=== PATIENT | female | born 1935 | race Caucasian/White ===

== ENCOUNTER 2016-10-19 12:15 | Emergency (ER) | payer MEDICARE, BC ==
[~2016-10-19] VITALS: Ht 157.5 cm; Wt 62.0 kg
[~2016-10-19 12:15] MED LIST: ASTE137S5; ATEN1TAB73 PO; BUME1TAB PO; CALC600T34 PO; COQ-100C2 PO; ENAL5TAB98 PO; FISH1200 PO; GLIM1 PO; GLUCTAB PO; MECL-62 PO; PARO10TA PO; POTA-267 PO; RIVA20 PO; TAB-TAB PO; ZYRT10TA12 PO
[2016-10-19 12:43] VITALS: BP 111/74; PULSE 76; RESP 16; TEMP 98.7; O2SAT 97
[2016-10-19] MEDS ORDERED: SODIUM CHLOR 0.9% 1000 ML INJ 1,000 ML IV ONE (14:15)
[2016-10-19] MEDS ORDERED: ONDANSETRON HCL 4 MG/2 ML VIAL IV PUSH ONE (14:15)
[2016-10-19] MEDS ORDERED: MECLIZINE HCL 25 MG TAB PO ONE (14:15)
[2016-10-19 14:25] VITALS: RESP 16; O2SAT 98
[2016-10-19 14:41] LABS: AUTOMATED NEUTROPHIL # 4.4 TH/MM3 (1.8-7.7); BASOPHIL # 0.1 TH/MM3 (0-0.2); BASOPHIL % 0.8 % (0.0-2.0); EOSINOPHIL # 0.1 TH/MM3 (0-0.4); EOSINOPHIL % 1.8 % (0.0-4.0); HEMATOCRIT 33.9 % (35.0-46.0); HEMO FLAGS DIFF FINAL; LYMPH % 25.8 % (9.0-44.0); LYMPHOCYTE # 1.7 TH/MM3 (1.0-4.8); MEAN CELL VOLUME 80.8 FL (80.0-100.0); MEAN CORPUSCULAR HEMOGLOBIN 25.8 PG (27.0-34.0); MEAN CORPUSCULAR HGB CONC 31.9 % (32.0-36.0); MONO % 6.8 % (0.0-8.0); NEUT % 64.8 % (16.0-70.0); PLATELET COUNT 388 TH/MM3 (150-450); RED BLOOD COUNT 4.19 MIL/MM3 (4.00-5.30); RED CELL DISTRIBUTION WIDTH 14.4 % (11.6-17.2); WHITE BLOOD COUNT 6.8 TH/MM3 (4.0-11.0)
[2016-10-19] MEDS ORDERED: SIMV40TA PO (14:45)
[2016-10-19] MEDS ORDERED: CALCCHW9 CHEW (14:45)
[2016-10-19] MEDS ORDERED: METF1000 PO (14:45)
[2016-10-19] MEDS ORDERED: ATEN25TA PO (14:45)
[2016-10-19] MEDS ORDERED: BUME1TAB PO (14:45)
[2016-10-19] MEDS ORDERED: POTA-245 PO (14:45)
[2016-10-19] MEDS ORDERED: EMPA1TAB3 PO (14:45)
[2016-10-19] MEDS ORDERED: ENAL2.5T PO (14:45)
[2016-10-19] MEDS ORDERED: XARE20TA PO (14:45)
[2016-10-19 14:50] LABS: POTASSIUM 4.4 MEQ/L (3.5-5.1)
--- NOTE | 2016-10-19 14:50 | PD ---
HPI Chief Complaint: Dizziness Time Seen by Provider: 14:03 Travel History International Travel<30 days: No Contact w/Intl Traveler<30days: No Traveled to known affect area: No History of Present Illness HPI 81 y/o female presents with dizziness and nausea despite taking her home meclizine. She states she has been taking a half a tablet goes the instructions she couldn't read on the bottle appropriately. She states that she has no other concurrent complaints including numbness, weakness to one side of the body, slurred speech or other concurrent complaints. She states she called her primary who advised her to come here to get checked out given they cannot to workups in the clinic. She states when she was like this once before she was dehydrated. She does note history of vertigo that felt similar without than nausea. She states she feels worse when she moves around. She denies other modifying factors. PFSH Past Medical History Arthritis: No Asthma: No Autoimmune Disease: No Blood Disorders: No Anxiety: Yes Depression: Yes Heart Rhythm Problems: Yes (HX OF A-FIB) Cancer: No Cardiovascular Problems: Yes (MV REPAIR, CARDIAC STENT) High Cholesterol: No Chemotherapy: No Chest Pain: Yes Congestive Heart Failure: No COPD: No Cerebrovascular Accident: No Coronary Artery Disease: Yes Diabetes: Yes Patient Takes Glucophage: Yes Diminished Hearing: No Endocrine: Yes GERD: No Glaucoma: No Genitourinary: No Headaches: No Hepatitis: No Hiatal Hernia: No Hypertension: Yes Immune Disorder: No Kidney Stones: No Musculoskeletal: Yes Neurologic: No Psychiatric: Yes Reproductive: No Respiratory: No Migraines: No Myocardial Infarction: No Radiation Therapy: No Renal Failure: No Seizures: No Sickle Cell Disease: No Sleep Apnea: No Thyroid Disease: Yes (GOITER) Ulcer: No Tetanus Vaccination: < 5 Years Influenza Vaccination: Yes Past Surgical History Abdominal Surgery: Yes (HYSTERECTOMY 1996, 2 1962,1956) AICD: No Appendectomy: No Arteriovenous Shunt: No Cardiac Surgery: Yes (1 STENT - OCT 2007) Section: Yes (X 2) Cholecystectomy: No Coronary Stent: Yes Ear Surgery: No Endocrine Surgery: No Eye Surgery: No Genitourinary Surgery: No Gynecologic Surgery: Yes Hysterectomy: Yes Insulin Pump: No Joint Replacement: No Oral Surgery: No Pacemaker: No Thoracic Surgery: No Tonsillectomy: Yes Other Surgery: Yes (HYSTERECTOMY, VALVE REPAIR,) Social History Alcohol Use: No Tobacco Use: No Substance Use: No Allergies-Medications (Allergen,Severity, Reaction): Coded Allergies: Codeine (Verified Allergy, Severe, Hallucinations, 10/19/16) Penicillin (Verified Allergy, Severe, Rash, 10/19/16) Iodine (Verified Adverse Reaction, Severe, Hives, 10/19/16) RASH,HIVES Reported Meds & Prescriptions Reported Meds & Active Scripts Active Zofran Odt (Ondansetron Odt) 4 Mg Tab 4 Mg SL Q6HR PRN Meclizine (Meclizine HCl) 25 Mg Tab 25 Mg PO DIRECTED PRN Reported Simvastatin 40 Mg Tab 40 Mg PO HS Xarelto (Rivaroxaban) 20 Mg Tab 20 Mg PO DAILY Calcium 1200 (Calcium Carbonate-Vitamin D W/Minerals) 1,200-1,000 Mg-Unit Chew 2 Tab CHEW BID Klor-Con M20 (Potassium Chloride Microencaps) 20 Meq Tab 20 Meq PO BID Metformin (Metformin HCl) 1,000 Mg Tab 1,000 Mg PO BIDPC With meals Bumetanide 1 Mg Tab 1 Mg PO DAILY Jardiance (Empagliflozin) 25 Mg Tab 25 Mg PO DAILY Enalapril (Enalapril Maleate) 2.5 Mg Tab 2.5 Mg PO BID Atenolol 25 Mg Tab 25 Mg PO BID Review of Systems Except as stated in HPI: all other systems reviewed are Neg Physical Exam Narrative GENERAL: Well-nourished, well-developed patient. SKIN: Warm and dry. HEAD: Normocephalic and atraumatic. EYES: No injection or drainage. ENT: No nasal drainage noted. NECK: Supple, trachea midline. CARDIOVASCULAR: Regular rate and rhythm RESPIRATORY: Breath sounds equal bilaterally. No accessory muscle use. GASTROINTESTINAL: Abdomen soft, non-tender, nondistended. EXTREMITIES: No edema. NEUROLOGICAL: Awake and alert. Motor and sensory grossly within normal limits. Normal speech. 5 out of 5 in all 4 extremities Data Data Last Documented VS Vital Signs Date Time Temp Pulse Resp B/P Pulse Ox O2 Delivery O2 Flow Rate FiO2 10/19/16 14:25 16 98 Room Air 10/19/16 12:43 98.7 76 111/74 Orders Complete Blood Count With Diff (10/19/16 14:11) Basic Metabolic Panel (Bmp) (10/19/16 14:11) Iv Access Insert/Monitor (10/19/16 14:11) Ecg Monitoring (10/19/16 14:11) Oximetry (10/19/16 14:11) Ondansetron Inj (Zofran Inj) (10/19/16 14:15) Sodium Chlor 0.9% 1000 Ml Inj (Ns 1000 M (10/19/16 14:15) Meclizine (Antivert) (10/19/16 14:15) Labs Laboratory Tests Test 10/19/16 14:25 White Blood Count 6.8 TH/MM3 Red Blood Count 4.19 MIL/MM3 Hemoglobin 10.8 GM/DL Hematocrit 33.9 % Mean Corpuscular Volume 80.8 FL Mean Corpuscular Hemoglobin 25.8 PG Mean Corpuscular Hemoglobin 31.9 % Concent Red Cell Distribution Width 14.4 % Platelet Count 388 TH/MM3 Mean Platelet Volume 6.8 FL Neutrophils (%) (Auto) 64.8 % Lymphocytes (%) (Auto) 25.8 % Monocytes (%) (Auto) 6.8 % Eosinophils (%) (Auto) 1.8 % Basophils (%) (Auto) 0.8 % Neutrophils # (Auto) 4.4 TH/MM3 Lymphocytes # (Auto) 1.7 TH/MM3 Monocytes # (Auto) 0.5 TH/MM3 Eosinophils # (Auto) 0.1 TH/MM3 Basophils # (Auto) 0.1 TH/MM3 CBC Comment DIFF FINAL Differential Comment Sodium Level 140 MEQ/L Potassium Level 4.4 MEQ/L Chloride Level 104 MEQ/L Carbon Dioxide Level 29.7 MEQ/L Anion Gap 6 MEQ/L Blood Urea Nitrogen 21 MG/DL Creatinine 0.89 MG/DL Estimat Glomerular Filtration 61 ML/MIN Rate Random Glucose 117 MG/DL Calcium Level 8.7 MG/DL [facility] Medical Decision Making Medical Screen Exam Complete: Yes Emergency Medical Condition: Yes Medical Record Reviewed: Yes (past history confirmed) Interpretation(s) CBC & BMP Diagram 10/19/16 14:25 Differential Diagnosis Anemia, dehydration, vertigo Narrative Course Will check blood work and dose with meclizine and Zofran and reevaluate ed workup no acute, Patient denies any new complaints and states that they are feeling better. Patient happy with care, all questions answered. Patient knows that follow up is incumbent on them and to return to the emergency room immediately if new or worsening symptoms develop. Patient given strict return precautions, vitals reviewed and are normal, agrees to further workup as an outpatient. Physician Communication Physician Communication Dr. Mg states patient can go home with follow-up in the office with no additional testing here after review of history and physical and results Diagnosis Primary Impression: Dizziness Additional Impression: Nausea Patient Instructions: General Instructions Additional Instructions: return as needed, follow with primary, meclizine and zofran as needed Med/Other Pt SpecificInfo: Prescription(s) given Scripts Ondansetron Odt (Zofran Odt)4 Mg Tab4 Mg SL Q6HR PRN (Nausea/Vomiting) #10 TAB Prov:Libertad Singleton MD 10/19/16 Meclizine 25 Mg Tab25 Mg PO DIRECTED PRN (VERTIGO) #10 TAB Ref 0 Prov:Libertad Singleton MD 10/19/16 Disposition: 01 DISCHARGE HOME Condition: Stable Libertad Singleton MD Oct 19, 2016 14:50
[2016-10-19 14:53] LABS: BICARBONATE 29.7 MEQ/L (21.0-32.0)
[2016-10-19] MEDS ORDERED: ZOFR4TAB3 SL (15:09)
[2016-10-19] MEDS ORDERED: MECL-62 PO (15:09)
[2016-10-19 15:27] VITALS: BP 147/57
== END 2016-10-19 15:28 | disposition home or self-care (01) ==
LOC: PHEFT 12:15
DX: R42 Dizziness and giddiness (principal); R11.0 Nausea; F41.8 Other specified anxiety disorders; I48.91 Unspecified atrial fibrillation; E11.9 Type 2 diabetes mellitus without complications; I10 Essential (primary) hypertension; Z79.4 Long term (current) use of insulin
CPT/HCPCS: 80048; 85025; 96361; 96374; 99284; J2405; J7030